=== PATIENT | male | born 1970 | race Two or more races ===

== ENCOUNTER 2021-12-22 14:13 | Emergency (ER) | payer MEDICAID, OTHER ==
[~2021-12-22] VITALS: Ht 180.3 cm; Wt 93.9 kg
[2021-12-22 14:50] LABS: BASOPHILS % (AUTO) 0.5 % (0.0-2.0); EOSINOPHILS % (AUTO) 1.4 % (0.0-6.0); HEMATOCRIT 42 % (39-51); HEMOGLOBIN 13.9 g/dL (13.5-17.5); LYMPHOCYTES # (AUTO) 1.5 K/uL (0.8-4.8); MEAN CORPUSCULAR HGB CONC 33 g/dl (31.0-36.0); MEAN CORPUSCULAR VOLUME 85 fL (80-96); MONOCYTES # (AUTO) 0.4 K/uL (0.1-1.30); MONOCYTES % (AUTO) 7.2 % (2.0-12.0); NEUTROPHILS % (AUTO) 65.9 % (43.0-81.0); PLATELET COUNT (AUTO) 260 K/uL (150-450); RED BLOOD CELL COUNT(AUTO) 4.95 MIL/uL (4.5-6.0); WHITE BLOOD COUNT (AUTO) 6.1 K/uL (4.3-11.0)
[2021-12-22 15:07] LABS: CALCIUM, SERUM 8.3 mg/dL (8.5-10.1); CREATININE 0.8 mg/dL (0.6-1.3); POTASSIUM 3.8 mmol/L (3.5-5.1)
--- NOTE | 2021-12-22 16:43 | NUR ---
DC Planning: DELROY received call from the pt.'s [facility] disease case manager rn, Samantha Goff [phone].Per samantha, the clinicals for this pt. have to be faxed to [phone] ATTN: Samantha when pt. is medically cleared so that their intake can determine if the pt. can return or needs higher level of care. Thompson Ureña TEL:[phone] can also be reached after hours if Samantha is not available. DELROY notified ED
[2021-12-22 17:21] LABS: PHENYTOIN (DILANTIN) 25.8 ug/ml (10.0-20.0)
[2021-12-22] MEDS ORDERED: LEVETIRACETAM (250 MG) 250 MG TABLET PO ONE ×2 (17:30→17:35)
[2021-12-22] MEDS ORDERED: LEVE1000 PO (17:31)
--- NOTE | 2021-12-22 18:47 | NUR ---
CALLED Natalie Ureña TEL:[phone] GOT DISCONNECTED AND LEFT VM.
--- NOTE | 2021-12-22 18:48 | NUR ---
[facility] CALLED FOR TRANSPORT ETA 45 MINS.
--- NOTE | 2021-12-22 18:51 | NUR ---
[facility] Natalie Ureña TEL:[phone] [address] [place] [address]
--- NOTE | 2021-12-22 19:42 | NUR ---
REPORT GIVEN TO [facility]. CALLED HOLA OF [facility] TO GIVE HIM UPDATE. PATIENT LEFT VIA JADARPATRICK, ALERT, ORIENTED X4.
--- NOTE | 2021-12-22 19:44 | NUR ---
Patient discharged to home in stable condition. Written and verbal after care instructions given. Patient verbalizes understanding of instruction.
--- NOTE | 2021-12-22 19:44 | NUR ---
IV CANNULA REMOVED
[2021-12-22 19:45] VITALS: BP 128/67
== END 2021-12-22 19:45 | disposition home or self-care (01) ==
LOC: ER 14:19
DX: G40.909 Epilepsy, unspecified, not intractable, without status epilepticus (principal); T42.0X5A Adverse effect of hydantoin derivatives, initial encounter; F20.9 Schizophrenia, unspecified; F31.9 Bipolar disorder, unspecified; Z88.8 Allergy status to other drugs, medicaments and biological substances; Y92.89 Other specified places as the place of occurrence of the external cause
CPT/HCPCS: 36415; 80048-TC; 80185-TC; 85025-TC; G0480